=== PATIENT | male | born 1960 ===

== ENCOUNTER 2020-11-26 16:00 | Emergency (ER) | payer SELFPAY ==
[~2020-11-26] VITALS: Ht 180 cm; Wt 72.7 kg
[2020-11-26 16:11] VITALS: BP 114/83
[2020-11-26 16:11] LABS: BASOPHILS % (AUTO) 1 % (0-10); EOSINOPHILS # (AUTO) 0.4 10^3/uL (0.0-0.3); EOSINOPHILS % (AUTO) 5 % (0-10); HEMATOCRIT 48 % (40-54); HEMOGLOBIN 16.6 g/dL (13.3-17.7); LYMPHOCYTES # (AUTO) 3.4 10^3/uL (1.0-4.0); LYMPHOCYTES % (AUTO) 44 % (12-44); MEAN CORPUSCULAR HEMOGLOBIN 32 pg (25-34); MEAN CORPUSCULAR HGB CONC 35 g/dL (32-36); MEAN CORPUSCULAR VOLUME 91 fL (80-99); MEAN PLATELET VOLUME 10.3 fL (9.0-12.2); MONOCYTES # (AUTO) 0.6 10^3/uL (0.0-1.0); MONOCYTES % (AUTO) 7 % (0-12); NEUTROPHILS # (AUTO) 3.3 10^3/uL (1.8-7.8); NEUTROPHILS % (AUTO) 43 % (42-75); PLATELET COUNT 239 10^3/uL (130-400); WHITE BLOOD COUNT 7.7 10^3/uL (4.3-11.0)
--- NOTE | 2020-11-26 16:17 | Diagnostic Imaging Report ---
INDICATION: Left-sided weakness and slurred speech. TECHNIQUE: Multiple contiguous axial images were obtained through the brain without the use of intravenous contrast. Auto Exposure Controls were utilized during the CT exam to meet ALARA standards for radiation dose reduction. There is no prior study for comparison. There are no extra-axial fluid collections. No intracranial hemorrhage. No intracranial mass or mass effect. No midline shift. The ventricles are normal in size and position. There were no focal parenchymal abnormalities in the brain. Calvarial windows show no acute finding. Visualized portions of the orbits and sinuses are unremarkable. IMPRESSION: Negative noncontrast brain CT. Dictated by: Dictated on workstation # [id number]
[2020-11-26 16:19] LABS: ALBUMIN 4.1 GM/DL (3.2-4.5); CHLORIDE 105 MMOL/L (98-107); POTASSIUM 3.7 MMOL/L (3.6-5.0); SODIUM 136 MMOL/L (135-145)
[2020-11-26 16:20] LABS: CALCIUM 9.1 MG/DL (8.5-10.1)
[2020-11-26 16:21] LABS: GLUCOSE 100 MG/DL (70-105); TOTAL PROTEIN 7.8 GM/DL (6.4-8.2)
[2020-11-26 16:22] LABS: CARBON DIOXIDE 23 MMOL/L (21-32)
[2020-11-26 16:23] LABS: BILIRUBIN,TOTAL 0.7 MG/DL (0.1-1.0)
[2020-11-26 16:24] LABS: FIBRIN DEGRADATION PRODUCTS 0.49 UG/ML (0.00-0.49); INR 0.9 (0.8-1.4); PROTHROMBIN TIME PATIENT 12.2 SEC (12.2-14.7)
[2020-11-26 16:25] LABS: ALKALINE PHOSPHATASE 124 U/L (40-136); CREATININE SERUM 0.76 MG/DL (0.60-1.30); GFR ESTIMATED 104
[2020-11-26 16:26] LABS: BUN/CREATININE RATIO 12
[2020-11-26 16:28] LABS: ALANINE AMINOTRANSFERASE 64 U/L (0-55)
--- NOTE | 2020-11-26 16:43 | ED Neurological Problem ---
General Chief Complaint: Neuro-Stroke Like Symptoms Stated Complaint: STROKE LIKE SYMPTOMS Source: patient, family, rejected items clerk Exam Limitations: clinical condition (STEVE ZALDIVAR MD) History of Present Illness Date Seen by Provider: Nov 26, 2020 Time Seen by Provider: 16:10 Initial Comments Patient is a 60-year-old male who presents by EMS from the local clinic with a chief complaint of acute stroke. With use of the language line history is as follows, the patient states that he has had headache nausea and vomiting and dizziness for the last 3 days. Family was able to convince him to go to the clinic this afternoon and on the way between the hours of 3 and 330 the patient developed facial drooping and left-sided paralysis. EMS was called by the clinic for the patient. Patient states that he has no past medical history, he used to smoke. No recent illnesses such as fevers, chills, cough or congestion. He is not Covid vaccinated. He states he has had a little bit of soft stool in the last couple of days. No problems with urination. Patient is not on any chronic daily medications. He denies a headache currently and states that he is not nauseous. Patient demonstrates flaccid hemiparalysis of the left side, he has a leftward nystagmus and a flicker of muscle contraction in the left thigh when he attempts to raise the left leg. After obtaining history with the use of the language line and his sister who is at the bedside stroke neurology was talked to by myself. We will hold off on TPA and obtain CTA head and neck and then reconsult with stroke neurology. All other review of systems reviewed and negative except as stated. Timing/Duration: 1 hour Severity: severe Associated Symptoms: numbness in legs/feet, slurred speech, weakness ( STEVE ZALDIVAR MD) Allergies and Home Medications Allergies Coded Allergies: No Allergy Information Available (Unverified , 11/26/20) Patient Home Medication List Home Medication List Reviewed: Yes (STEVE ZALDIVAR MD) Review of Systems Review of Systems Constitutional: see HPI, dizziness Eyes: No Symptoms Reported Ears, Nose, Mouth, Throat: no symptoms reported Respiratory: no symptoms reported Cardiovascular: no symptoms reported Gastrointestinal: nausea, vomiting Genitourinary: no symptoms reported Musculoskeletal: no symptoms reported Skin: no symptoms reported Psychiatric/Neurological: Headache, Unable to Move Lower Ext, Unable to Move Upper Ext Endocrine: No Symptoms Reported (STEVE ZALDIVAR MD) All Other Systems Reviewed Negative Unless Noted: Yes (STEVE ZALDIVAR MD) Physical Exam Vital Signs Vital Signs - First Documented 11/26/20 16:00 Temp 36.5 Pulse 66 Resp 16 B/P (MAP) 114/83 (93) Pulse Ox 100 O2 Delivery Room Air (LOGAN REID) Vital Signs Capillary Refill : (STEVE ZALDIVAR MD) Height, Weight, BMI Height: '" Weight: lbs. oz. kg; BMI Method: General Appearance: WD/WN, no apparent distress HEENT: PERRL/EOMI Neck: non-tender, supple Respiratory: lungs clear, normal breath sounds, no respiratory distress, no accessory muscle use Cardiovascular: regular rate, rhythm Gastrointestinal: normal bowel sounds, non tender, soft Extremities: non-tender, normal inspection Neurologic/Psychiatric: alert, normal mood/affect, oriented x 3, aphasia, facial droop, motor weakness, sensory deficit Crainal Nerves: abnormal speech, facial droop (left), facial paresthesias, tongue deviation to L Motor/Sensory: sensory deficit, weak motor strength LUE, weak motor strength LLE Skin: normal color, warm/dry (STEVE ZALDIVAR MD) Stroke Onset of Symptoms Date of Onset of Symptoms: Nov 26, 2020 Time of Symptom Onset: 15:00 Onset of Symptoms: Yes Symptoms onset unknown: No (STEVE ZALDIVAR MD) NIH Stroke Scale Assessment Select: Initial Level of Consciousness: 0=Alert (0), Level of Consciousness-Questions: 0=Answers both month/age (0), LOC Commands: 0=Performs both tasks (0), Gaze: Normal (0), Facial Movement (Facial Paresis): 2=Partial paralysis (2), Motor Function-Arms Right: 0=No drift (0), Motor Function-Arms Left: 3=No effort/gravity (3), Motor Function-Legs Right: 0=No drift (0), Motor Function-Legs Left: 3=No effort/gravity (3), Sensory: 1=Mild to Moderate loss (1), Best Language: 0=No aphasia (0), Dysarthria: 1=Mild to moderate loss (1), Extinction & Inattention: 0=No abnormality (0), Total: 10 Stroke Thrombolytic Exclusion Age 18 or Over: Yes Acute intenal hemorrhage: No History of CVA: No Uncontrolled Coagulation Defec: No Intracranial Hemorrhage: No Severe Hypertension: No GI or Bleed: No Subarachnoid Hemorrhage: No Intracranial Neoplasm/Aneurysm: No Oral Anticoagulants: No Surgery or Trauma: No Puncture of Non-Compressible V: No Recent CPR: No Diabetic Hemorrhagic Retinopat: No Organ Biopsy: No Recent Obstetric Delivery: No Glucose: No Significant Hepatic Dysfunctio: No NIH Stoke Scale >22: No Bacterial Endocarditis: No Pericarditis: No Improving Symptoms: No Platelets: Yes TPA Contraindication: No (STEVE ZALDIVAR MD) IV - TPa Received IV - TPa Procedure Performed?: Yes (STEVE ZALDIVAR MD) Progress/Results/Core Measures Results/Orders Lab Results Laboratory Tests Test 11/26/20 16:05 11/26/20 16:42 Range/Units White Blood Count 7.7 4.3-11.0 10^3/uL Red Blood Count 5.25 4.30-5.52 10^6/uL Hemoglobin 16.6 13.3-17.7 g/dL Hematocrit 48 40-54 % Mean Corpuscular Volume 91 80-99 fL Mean Corpuscular Hemoglobin 32 25-34 pg Mean Corpuscular Hemoglobin Concent 35 32-36 g/dL Red Cell Distribution Width 12.4 10.0-14.5 % Platelet Count 239 130-400 10^3/uL Mean Platelet Volume 10.3 9.0-12.2 fL Immature Granulocyte % (Auto) 1 % Neutrophils (%) (Auto) 43 42-75 % Lymphocytes (%) (Auto) 44 12-44 % Monocytes (%) (Auto) 7 0-12 % Eosinophils (%) (Auto) 5 0-10 % Basophils (%) (Auto) 1 0-10 % Neutrophils # (Auto) 3.3 1.8-7.8 10^3/uL Lymphocytes # (Auto) 3.4 1.0-4.0 10^3/uL Monocytes # (Auto) 0.6 0.0-1.0 10^3/uL Eosinophils # (Auto) 0.4 H 0.0-0.3 10^3/uL Basophils # (Auto) 0.0 0.0-0.1 10^3/uL Immature Granulocyte # (Auto) 0.1 0.0-0.1 10^3/uL Prothrombin Time 12.2 12.2-14.7 SEC INR Comment 0.9 0.8-1.4 Activated Partial Thromboplast Time 28 24-35 SEC D-Dimer 0.49 0.00-0.49 UG/ML Sodium Level 136 135-145 MMOL/L Potassium Level 3.7 3.6-5.0 MMOL/L Chloride Level 105 98-107 MMOL/L Carbon Dioxide Level 23 21-32 MMOL/L Anion Gap 8 5-14 MMOL/L Blood Urea Nitrogen 9 7-18 MG/DL Creatinine 0.76 0.60-1.30 MG/DL Estimat Glomerular Filtration Rate 104 BUN/Creatinine Ratio 12 Glucose Level 100 70-105 MG/DL Calcium Level 9.1 8.5-10.1 MG/DL Corrected Calcium 9.0 8.5-10.1 MG/DL Total Bilirubin 0.7 0.1-1.0 MG/DL Aspartate Amino Transf (AST/SGOT) 37 H 5-34 U/L Alanine Aminotransferase (ALT/SGPT) 64 H 0-55 U/L Alkaline Phosphatase 124 40-136 U/L Troponin I < 0.028 <0.028 NG/ML Total Protein 7.8 6.4-8.2 GM/DL Albumin 4.1 3.2-4.5 GM/DL Urine Color YELLOW Urine Clarity CLEAR Urine pH 7.5 5-9 Urine Specific Carson 1.015 L 1.016-1.022 Urine Protein NEGATIVE NEGATIVE Urine Glucose (UA) NEGATIVE NEGATIVE Urine Ketones NEGATIVE NEGATIVE Urine Nitrite NEGATIVE NEGATIVE Urine Bilirubin NEGATIVE NEGATIVE Urine Urobilinogen 0.2 < = 1.0 MG/DL Urine Leukocyte Esterase NEGATIVE NEGATIVE Urine RBC (Auto) NEGATIVE NEGATIVE Urine RBC RARE /HPF Urine WBC 0-2 /HPF Urine Crystals PRESENT H /LPF Urine Amorphous Sediment RARE MERARI URATES H /LPF Urine Bacteria TRACE /HPF Urine Casts NONE /LPF Urine Mucus NEGATIVE /LPF Urine Culture Indicated NO (LOGAN REID) Medications Given in ED Current Medications Medications Dose Ordered Sig/James Route Start Time Stop Time Status Last Admin Dose Admin Iohexol 100 ml ONCE ONCE IV 11/26/20 17:15 11/26/20 17:16 DC 11/26/20 17:59 75 ML Sodium Chloride 100 ml ONCE ONCE IV 11/26/20 17:15 11/26/20 17:16 DC 11/26/20 17:59 80 ML (LOGAN REID) Vital Signs/I&O 11/26/20 11/26/20 11/26/20 16:00 16:11 16:52 Temp 36.5 Pulse 66 66 Resp 16 16 B/P (MAP) 114/83 (93) 114/83 Pulse Ox 100 100 100 O2 Delivery Room Air Room Air (LOGAN REID) Progress Progress Note : Time: 16:38 Progress Note Discussed with stroke neurology, Dr. Parker; does not recommend TPA at this time, suspicion for posterior circulation stroke. Request CT angio head and neck and then will reevaluate. 1740 CTA's done, images being processed now and then clouded to 1803 Called by [facility], concern for left basilar artery thrombus; images aren't great but there is some haziness there and a suggestion of possible thrombus. dictation to follow. care passed to Dr Reid at shift change with possible transfer/disposition pending 1814 Patient reassessed after CTAs. He still has flaccid paralysis of the left upper extremity but has a little bit more movement, some flexion in his left lower extremity at the hip. Still has significant left-sided facial droop (STEVE ZALDIVAR MD) Initial ECG Impression Date: Nov 26, 2020 Initial ECG Impression Time: 16:14 Initial ECG Rate: 66 Initial ECG Rhythm: Normal Sinus Initial ECG Intervals: Normal Initial ECG Impression: Normal (STEVE ZALDIVAR MD) Diagnostic Imaging Diagonstic Imaging: CT Plain Films/CT/US/NM/MRI: head Comments [facility]. [place], [place] NAME: BROOK PRYOR [facility] REC#: [id number] PT STATUS: REG ER : 1960 PHYSICIAN: LIANA CASTELLANO APRN ADMIT DATE: 11/26/20/ER Signed Date of Exam:11/26/20 CT HEAD WO-R/O STROKE INDICATION: Left-sided weakness and slurred speech. TECHNIQUE: Multiple contiguous axial images were obtained through the brain without the use of intravenous contrast. Auto Exposure Controls were utilized during the CT exam to meet ALARA standards for radiation dose reduction. There is no prior study for comparison. There are no extra-axial fluid collections. No intracranial hemorrhage. No intracranial mass or mass effect. No midline shift. The ventricles are normal in size and position. There were no focal parenchymal abnormalities in the brain. Calvarial windows show no acute finding. Visualized portions of the orbits and sinuses are unremarkable. IMPRESSION: Negative noncontrast brain CT. Dictated by: Dictated on workstation # [id number] Dict: 11/26/20 1613 Trans: 11/26/[address] [facility] [id number] Interpreted by: SHANTELL GARCIA MD Electronically signed by: SHANTELL GARCIA MD 11/26/201702 (STEVE ZALDIVAR MD) Diagonstic Imaging: CT (angio) Plain Films/CT/US/NM/MRI: head (neck) Comments [facility] [place] [place] NAME: BROOK PRYOR [facility] REC#: [id number] PT STATUS: REG ER : 1960 PHYSICIAN: STEVE ZALDIVAR MD ADMIT DATE: 11/26/20/ER Draft Date of Exam:11/26/20 CT ANGIO HEAD/NECK EXAMINATION: CT angiography head and neck with and without contrast. TECHNIQUE: After intravenous administration of contrast, thin section axial CT angiography of the head and neck was performed. Source data was reformatted into 3D MIP projections. All CT scans use one or more of the following dose optimizing techniques: automated exposure control, MA and/or KvP adjustment based on a patient size and exam type, or iterative reconstruction. Any measurements of internal carotid artery stenosis are provided according to NASCET criteria. HISTORY: Paralysis, left-sided weakness. COMPARISON: None available. FINDINGS: The carotid arteries are normal without stenosis. Vertebral arteries are normal without stenosis. Intracranial internal carotid arteries are normal. The middle cerebral arteries are normal. The posterior cerebral arteries are normal. The anterior cerebral arteries are normal. The mid basilar artery is poorly defined but appears expanded with a filling defect centrally (series 3, image 380). The left V4 segment is diminutive. The entire left vertebral artery is very diminutive. This is likely congenital as the transverse foramen on the left are smaller than on the right. No aneurysm or vascular malformation is seen. The dural venous sinuses are normal. There is no arterial venous sinus thrombosis. The purcell-white matter differentiation is normal. No mass effect or midline shift. The ventricles are normal in size and configuration. Basilar cisterns are patent. There are no intra- or extra-axial fluid collections. There is no intracranial hemorrhage. The orbits are normal. Paranasal sinuses are normal. Mastoid air cells are clear. No soft tissue abnormality is seen. No osseus lesions or fractures are seen. No lymphadenopathy is seen in the neck. The muscles of the neck are normal. Fascial planes are preserved and the deep spaces of the neck are normal. Limited views of the superior thorax are unremarkable. No osseous lesions or fractures are seen. IMPRESSION: 1. Poorly defined basilar artery due to streak artifact and motion. Basilar artery appears expanded with likely a filling defect in the mid basilar artery (series 3, image 380). Critical findings called to Dr. Zaldivar by Dr. Singh on 11/26/2020 at 6:06 PM. Dictated on workstation # [id number] Dict: 11/26/20 1753 Trans: 11/26/20 181 [facility] [id number] Interpreted by: MYRTLE SINGH MD Electronically signed by: Reviewed: Reviewed by Nv Diagonstic Imaging: Xray Plain Films/CT/US/NM/MRI: chest Comments [facility] [place] [place] NAME: [facility] REC#: [id number] PT STATUS: REG ER : 1960 PHYSICIAN: LIANA CASTELLANO APRN ADMIT DATE: 11/26/20/ER Signed Date of Exam:11/26/20 CHEST 1 VIEW, AP/PA ONLY EXAM: CHEST 1 VIEW, AP/PA ONLY INDICATION: Stroke. COMPARISON: None. FINDINGS: Normal heart size and central pulmonary vascularity. No focal pulmonary opacity. No pleural effusion or pneumothorax. No acute osseous findings. IMPRESSION: No acute cardiopulmonary findings. Dictated by: Dictated on workstation # [id number] Dict: 11/26/20 1808 Trans: 11/26/201902 COUNT INCLUDES THE [facility] [id number] Interpreted by: SILVIANO AYOUB MD Electronically signed by: SILVIANO AYOUB MD 11/26/201902 Reviewed: Reviewed by Me (LOGAN REID) Critical Care Note Critical Care Start Time: 16:10 Stop Time: 18:04 Total Time (minutes) 45 minutes critical care time in the evaluation management of this patient with an acute stroke. Time includes review and interpretation of laboratory studies, imaging, CT brain, chest x-ray etc. Discussion with family and the patient, discussion with stroke neurology (STEVE ZALDIVAR MD) Departure Impression Primary Impression: Cerebrovascular accident due to cerebral artery occlusion Disposition: XFER SHT-TRM HOSP Condition: Critical Transfer Transfer Reason: Exceeds level of care (neuro interventional) Time Spoke to Accepting Phy: 18:10 Transfer Progress Notes Liana spoke to and reviewed the CT imaging demonstrating filling defect and [facility] feels that they can help patient so after discussing with the patient they have elected to transfer to 's capable care. Helicopter has arrived at 1945 for transport. Transfer Time: 20:00 Transfer Facility: [facility] Method of Transfer: Air (LOGAN REID) STEVE ZALDIVAR MD Nov 26, 2020 16:43 LOGAN REID Nov 26, 2020 19:45
[2020-11-26 16:51] LABS: BILIRUBIN,URINE NEGATIVE (NEGATIVE); CLARITY,URINE CLEAR; COLOR,URINE YELLOW; GLUCOSE, URINE (UA) NEGATIVE (NEGATIVE); KETONES,URINE NEGATIVE (NEGATIVE); LEUKOCYTE ESTERASE ,URINE NEGATIVE (NEGATIVE); NITRITE,URINE NEGATIVE (NEGATIVE); PH,URINE 7.5 (5-9); PROTEIN,URINE NEGATIVE (NEGATIVE)
[2020-11-26] MEDS ORDERED: NS 100 ML (IVPB) BAG IV ONE (17:15)
[2020-11-26] MEDS ORDERED: HOLD METFORMIN - RECEIVED CONTRAST 20 ML VIAL IV SCH (17:15)
[2020-11-26] MEDS ORDERED: IOHEXOL 350 MG/ML 100 ML (OMNIPAQUE 350) VIAL IV ONE (17:15)
[2020-11-26 17:31] LABS: BACTERIA,URINE TRACE /HPF; RBC,URINE RARE /HPF; WBC,URINE 0-2 /HPF
[2020-11-26 17:32] LABS: AMORPHOUS SEDIMENT,UR RARE AMOR URATES /LPF
--- NOTE | 2020-11-26 18:11 | Diagnostic Imaging Report ---
EXAM: CHEST 1 VIEW, AP/PA ONLY INDICATION: Stroke. COMPARISON: None. FINDINGS: Normal heart size and central pulmonary vascularity. No focal pulmonary opacity. No pleural effusion or pneumothorax. No acute osseous findings. IMPRESSION: No acute cardiopulmonary findings. Dictated by: Dictated on workstation # [id number]
--- NOTE | 2020-11-26 18:13 | Diagnostic Imaging Report ---
EXAMINATION: CT angiography head and neck with and without contrast. TECHNIQUE: After intravenous administration of contrast, thin section axial CT angiography of the head and neck was performed. Source data was reformatted into 3D MIP projections. All CT scans use one or more of the following dose optimizing techniques: automated exposure control, MA and/or KvP adjustment based on a patient size and exam type, or iterative reconstruction. Any measurements of internal carotid artery stenosis are provided according to NASCET criteria. HISTORY: Paralysis, left-sided weakness. COMPARISON: None available. FINDINGS: The carotid arteries are normal without stenosis. Vertebral arteries are normal without stenosis. Intracranial internal carotid arteries are normal. The middle cerebral arteries are normal. The posterior cerebral arteries are normal. The anterior cerebral arteries are normal. The mid basilar artery is poorly defined but appears expanded with a filling defect centrally (series 3, image 380). The left V4 segment is diminutive. The entire left vertebral artery is very diminutive. This is likely congenital as the transverse foramen on the left are smaller than on the right. No aneurysm or vascular malformation is seen. The dural venous sinuses are normal. There is no arterial venous sinus thrombosis. The purcell-white matter differentiation is normal. No mass effect or midline shift. The ventricles are normal in size and configuration. Basilar cisterns are patent. There are no intra- or extra-axial fluid collections. There is no intracranial hemorrhage. The orbits are normal. Paranasal sinuses are normal. Mastoid air cells are clear. No soft tissue abnormality is seen. No osseus lesions or fractures are seen. No lymphadenopathy is seen in the neck. The muscles of the neck are normal. Fascial planes are preserved and the deep spaces of the neck are normal. Limited views of the superior thorax are unremarkable. No osseous lesions or fractures are seen. IMPRESSION: 1. Poorly defined basilar artery due to streak artifact and motion. Basilar artery appears expanded with likely a filling defect in the mid basilar artery (series 3, image 380). Critical findings called to Dr. Neal by Dr. Tucker on 11/26/2020 at 6:06 PM. Dictated by: Dictated on workstation # [id number]
[2020-11-26 20:22] VITALS: BP 148/67
== END 2020-11-26 20:22 | disposition short-term general hospital (02) ==
LOC: ER 16:02 → EDBD 16:02 → ER 20:22
DX: I63.50 Cerebral infarction due to unspecified occlusion or stenosis of unspecified cerebral artery (principal); Z87.891 Personal history of nicotine dependence
CPT/HCPCS: 36415; 51702; 70450; 70496; 70498; 71045; 80053; 81000; 82947; 84484; 85025; 85379; 85610; 85730; 93005; 93041